=== PATIENT | male | born 1960 | race Two or more races ===

== ENCOUNTER 2024-07-31 18:48 | Emergency (ER) | payer MEDICAID, SELFPAY ==
[2024-07-31 19:31] VITALS: BP 156/92; PULSE 108; RESP 18; TEMP 36.7; O2SAT 98
[2024-07-31 19:34] VITALS: BMI 28.4
[2024-07-31] MEDS: ACYCLOVIR 800 MG TABLET PO (20:02)
[2024-07-31 20:03] VITALS: RESP 18
--- NOTE | 2024-07-31 20:07 | PD.EDMALE ---
ED Male Genitalurinary RME/HPI General Chief complaint: General Adult/Misc Complain Stated complaint: SORES ON THE HEAD OF PENIS, STARTED 4 DAYS AGO Time Seen by Provider: 07/31/24 19:44 Arrival date/time: 07/31/24 18:48 63M with history of HTN presents to ED with painful sores on head of penis. Patient had anonymous sexual intercourse prior to start of symptoms. Limitations: no limitations Related Data Home Medications ?Medication ?Instructions ?Recorded ?Confirmed metoprolol tartrate 25 mg tablet 25 mg PO BID 08/18/19 08/18/19 pravastatin 40 mg tablet 40 mg PO QDAY 08/18/19 08/18/19 Previous Rx's ?Medication ?Instructions ?Recorded amoxicillin 500 mg-potassium 1 tab PO TID #30 tabs 08/18/19 clavulanate 125 mg tablet (Augmentin) ibuprofen 600 mg tablet 600 mg PO Q6H PRN fever or pain 08/18/19 #20 tabs hydrocodone 5 mg-acetaminophen 325 1 tab PO BID PRN pain #6 tabs 12/28/22 mg tablet acyclovir 400 mg tablet 400 mg PO TID 7 days #21 tabs 07/31/24 Allergies Allergy/AdvReac Type Severity Reaction Status Date / Time codeine Allergy Verified 07/31/24 18:50 Review of Systems Review of Systems Systems Reviewed: All systems reviewed, normal except as documented Constitutional Constitutional: Reports system reviewed and no additional complaints, except as documented, Denies fever(s) and Denies headache(s) ENT Ears, Nose, Mouth, and Throat: Denies disequilibrium and Denies headache(s) Cardiovascular Cardiovascular: Reports system reviewed and no additional complaints, except as documented, Denies chest pain and Denies dyspnea Respiratory Respiratory: Reports system reviewed and no additional complaints, except as documented, Denies cough and Denies dyspnea Gastrointestinal Gastrointestinal: Reports system reviewed and no additional complaints, except as documented, Denies abdominal pain, Denies nausea and Denies vomiting Genitourinary Genitourinary: Reports as per HPI and Reports genital pain Neurologic Neurologic: Reports system reviewed and no additional complaints, except as documented, Denies confusion, Denies disequilibrium and Denies headache(s) Psychiatric Psychiatric: Denies confusion Past Medical History Past Medical History CARDIAC: Positive Cardiac Disorders, Hypercholesterolemia and Hypertension; Negative Congestive Heart Failure RESPIRATORY: Negative Chronic Obstructive Pulmonary Disease (COPD) GENITOURINARY: Negative Renal Disease ENDOCRINE: Negative Diabetes Mellitus Type 1 or Diabetes Mellitus Type 2 Social History SMOKING STATUS: Never smoker SUBSTANCE USE: does not use ED Exam General Limitations: Present no limitations General appearance: Present alert and in no apparent distress Head Head exam: Present atraumatic Eye Eye exam: Present normal appearance, PERRL and EOMI ENT ENT exam: Present normal exam, normal oropharynx and mucous membranes moist Neck Neck exam: Present normal inspection, full ROM and trachea midline Chest Chest inspection: Present normal inspection and symmetric chest wall rise Respiratory Respiratory exam: Present normal lung sounds bilaterally Cardiovascular Cardiovascular exam: Present regular rate, normal rhythm and normal heart sounds Abdominal Exam Abdominal exam: Present soft and normal bowel sounds Expanded Exam exam: Present lesions (sores on head of penis) Extremities Exam Extremities exam: Present normal inspection and full ROM Back Exam Back exam: Present normal inspection and full ROM Neurological Exam Neurological exam: Present alert, oriented X3 and CN II-XII intact Psychiatric Psychiatric exam: Present normal affect and normal mood Skin Skin exam: Present warm, dry, intact and normal color Course Quality Measures none Orders Category Date Time Status Acyclovir [Zovirax] Med 07/31/24 19:45 Discontinued 800 mg PO X1 ONE Vital Signs Vital signs: Vital Signs Temperature 98.1 F 07/31/24 19:31 Pulse Rate 108 H 07/31/24 19:31 Respiratory Rate 18 07/31/24 19:31 Blood Pressure 156/92 H 07/31/24 19:31 Pulse Oximetry (%) 98 07/31/24 19:31 Oxygen Delivery Method Room Air 07/31/24 19:31 O2 at 98% on RA and WNLs Urogenital - Male MDM Narrative MDM Narrative:: 63M with history of HTN presents to ED with painful sores on head of penis. Patient had anonymous sexual intercourse prior to start of symptoms. 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 Likely genital herpes. Meds and christian counselor given. Patient data External records reviewed:: [facility] previous records Clinical information provided by:: patient Social determinants that could affect healthcare access:: none Patient has the following chronic illnesses:: HTN How is presenting disease/condition affected by chronic disease/condition?: uneffected by Evaluation data The following diagnostics were reviewed and interpreted by me:: other (specify) (none) Lab and/or radiology exams considered but not ordered:: not ordered Interpretation Summary: n/a Medications / Prescriptions Medications or Prescriptions considered but not ordered:: ordered Medication administrations:: Medication Administration History Discontinued Medications Acyclovir (Acyclovir 800 Mg Tablet) 800 mg PO X1 ONE Stop: 07/31/24 19:46 Last Admin: 07/31/24 20:02 Dose: 800 mg Documented By: CVL above Consultations Consultation(s) initiated? (list below): No Diagnosis Urogenital Male Differential Diagnosis: urinary tract infection, priapism, urethritis, epididymitis, genital herpes simplex, prostatitis, acute retention of urine and inguinal hernia Most likely diagnosis given after review of the tests above:: genital herpes Admission Indicated Admission indicated?: not indicated Admission Request Was there a request for admission?: No Disposition Plan Disposition Plan: Discharge Discharge Attestation Discharge Attestation: The patient and all family members were given an opportunity to ask questions and understood the discharge instructions. Discharge instructions specifically effects, indications for sooner follow up or return to the emergency department, and the expected course of current diagnosis. Patient condition: Stable Discharge Plan Plan Patient Disposition: HOME (Self Care) Disposition Comment: Stable Prescriptions/Referrals Prescriptions/Med Rec: New acyclovir 400 mg tablet 400 mg PO TID 7 Days Qty: 21 0RF No Action pravastatin 40 mg Tablet 40 mg PO QDAY metoprolol tartrate 25 mg Tablet 25 mg PO BID amoxicillin-pot clavulanate [Augmentin] 500-125 mg tablet 1 tab PO TID Qty: 30 0RF ibuprofen 600 mg tablet 600 mg PO Q6H PRN (Reason: fever or pain) Qty: 20 0RF hydrocodone-acetaminophen 5-325 mg tablet 1 tab PO BID MDD 10 PRN (Reason: pain) Qty: 6 0RF Problem List Clinical Impression: Genital herpes Patient/Caregiver Discharge Instructions Education Materials: ED Herpes Genitalis, Hsv: Type Ii Additional Instructions: Please follow-up with PCP within 24-48 hours and return immediately if symptoms worsen. No more intercourse until sores are gone. Print Language: Samoan Stand Alone Forms: Patient Portal Info Letter PA/BRIM POUNCER Supervising Physician PA/BRIM POUNCER Supervising Physician: Dr. Haq
== END 2024-07-31 20:04 | disposition home or self-care (01) ==
LOC: SERX 19:49
PROVIDERS: Emergency Provider Emergency Medicine
DX: B00.9 Herpesviral infection, unspecified (principal)
CPT/HCPCS: 99282; A9270